=== PATIENT | female | born 1945 | race Caucasian/White ===

== ENCOUNTER 2019-04-03 11:34 | Inpatient (IN) ==
[2019-04-03 12:28] LABS: Basophils % 0.2 %; Eosinophils # 0.2 K/mcL (0.0-0.6); Eosinophils % 3.4 %; Hematocrit 34.4 % (35.3-44.9); Immature Granulocytes % 0.2 % (0-4); Lymphocytes # 1.7 K/mcL (0.6-4.6); Lymphocytes % 36.7 %; Mean Corpuscular Hemoglobin 28.9 pg (28.0-33.3); Mean Corpuscular Volume 90.5 fL (83.0-100.0); Mean Platelet Volume 10.8 fL (9.4-12.4); Monocytes # 0.5 K/mcL (0.0-1.3); Monocytes % 9.9 %; Neutrophils # 2.3 K/mcL (1.6-8.9); Platelet Count 136 K/mcL (140-400); Red Cell Distribution Width 15.6 % (11.5-14.5); Segmented Neutrophils % 49.6 %; White Blood Count 4.7 K/mcL (4.3-11.1)
[2019-04-03 12:40] LABS: INR 1.1; Prothrombin Time 12.6 Seconds (9.4-12.1)
[2019-04-03 12:43] LABS: Activated Partial Thrombo Time 33.7 Seconds (26.0-36.0)
[2019-04-03 12:54] LABS: Alanine Aminotransferase 33 Units/L (7-52); Alkaline Phosphatase 112 Units/L (34-104); Aspartate Amino Transferase 67 Units/L (13-39); BUN/Creatinine Ratio 29 (6-26); Bilirubin,Direct 0.2 mg/dL (0.0-0.2); Bilirubin,Indirect 0.6 mg/dL (0.0-1.0); Bilirubin,Total 0.8 mg/dL (0.3-1.0); Blood Urea Nitrogen 35 mg/dL (8-23); Calcium 10.5 mg/dL (8.6-10.3); Carbon Dioxide 20 mEq/L (23-29); Chloride 106 mEq/L (98-107); Ethanol < 10 mg/dL (Less than 10); Glucose 93 mg/dL (70-105); Osmolality,Calculated 292 (280-300); Potassium 5.1 mEq/L (3.5-5.1); Sodium 137 mEq/L (136-145); eGFR For African Americans 53 (> 60); eGFR For Non-African Americans 44 (> 60)
[2019-04-03 13:18] LABS: Bacteria,Urine Few per hpf (None-Few); RBC,Urine 0-3 per hpf (0-3); Squamous Epithelial Cell,Urine Many per lpf (None-Few); WBC,Urine 15-30 per hpf (0-3)
[2019-04-03 13:20] LABS: Amphetamine Screen,Urine Negative ng/mL (Cutoff=1000); Barbiturate Screen,Urine Negative ng/mL (Cutoff=200); Benzodiazepines Screen,Urine Negative ng/mL (Cutoff=200); Cannabinoid Screen,Urine Negative ng/mL (Cutoff = 50); Cocaine Screen,Urine Negative ng/mL (Cutoff= 300); Opiate Screen,Urine Negative ng/mL (Cutoff=300); Phencyclidine Screen,Urine Negative ng/mL (Cutoff=25)
[2019-04-03 13:35] LABS: Bilirubin,Urine Negative (Negative); Blood,Urine Negative (Negative); Clarity,Urine Cloudy (Clear); Color,Urine Yellow (Yellow); Glucose,Urine (UA) Normal (Normal); Ketones,Urine Negative (Negative); Leukocyte Esterase,Urine Moderate (Negative); Nitrite,Urine Negative (Negative); Protein,Urine Trace mg/dL (Neg-Trace); Urobilinogen,Urine Normal (Normal)
[2019-04-03 13:42] LABS: Calcium Oxalate Crystals,Urine Present
[2019-04-03] MEDS ORDERED: Lactulose Oral Soln 20 GM/30 ML UDC PO ONE (13:43)
[2019-04-03 13:51] LABS: Troponin I < 0.03 ng/mL (< 0.04)
[2019-04-03] MEDS ORDERED: cefTRIAXone 1,000 MG in Water for inj. (sterile) 10 ML IVP ONE (14:30)
[2019-04-03] MEDS ORDERED: MOM Conc 10 ML UD.LIQ PO PRN (15:28)
[2019-04-03] MEDS ORDERED: *HR* Promethazine 25 MG/ML VIAL IVP PRN (15:28)
[2019-04-03] MEDS ORDERED: Mag Hydrox/Al Hydrox/Simeth 30 ML UDC PO PRN (15:28)
[2019-04-03] MEDS ORDERED: Naloxone 0.4 MG/ML INJ IVP PRN (15:28)
[2019-04-03] MEDS ORDERED: Ondansetron 4 MG/2 ML VIAL IVP PRN (15:28)
[2019-04-03] MEDS ORDERED: *HR* Dextrose 50 % in Water (Syg) 50 ML SYRINGE IVP PRN (15:30)
[2019-04-03] MEDS ORDERED: Dextrose Gel 15 GM/37.5 ML TUBE PO PRN ×2 (15:30)
[2019-04-03] MEDS ORDERED: D5% in Water 1,000 ML IVC PRN (15:30)
[2019-04-03] MEDS: cefTRIAXone 2,000 MG in Water for inj. (sterile) 20 ML IVP SCH (18:15)
[2019-04-03] MEDS: 0.9 % Sodium Chloride 1,000 ML IVC SCH (18:17)
[2019-04-03] MEDS: Insulin LISPRO 300 UNITS/3 ML VIAL SQ SCH ×2 (18:17→20:22)
[2019-04-03] MEDS: rOPINIRole 0.25 MG TABLET PO SCH (20:19)
[2019-04-03] MEDS: Lactulose Oral Soln 20 GM/30 ML UDC PO SCH (20:20)
[2019-04-04 05:43] LABS: Basophils % 0.5 %; Eosinophils # 0.1 K/mcL (0.0-0.6); Eosinophils % 2.1 %; Hematocrit 29.1 % (35.3-44.9); Lymphocytes # 1.7 K/mcL (0.6-4.6); Lymphocytes % 43.5 %; Mean Corpuscular HGB Conc 31.6 g/dL (31.6-35.5); Mean Corpuscular Hemoglobin 28.9 pg (28.0-33.3); Mean Corpuscular Volume 91.5 fL (83.0-100.0); Monocytes # 0.5 K/mcL (0.0-1.3); Monocytes % 12.1 %; Neutrophils # 1.6 K/mcL (1.6-8.9); Platelet Count 114 K/mcL (140-400); Red Blood Count 3.18 M/mcL (3.82-4.97); Red Cell Distribution Width 15.6 % (11.5-14.5); Segmented Neutrophils % 41.8 %; White Blood Count 3.8 K/mcL (4.3-11.1)
[2019-04-04 05:53] LABS: Calcium 9.4 mg/dL (8.6-10.3); Potassium 5.2 mEq/L (3.5-5.1)
[2019-04-04 06:01] LABS: Hemoglobin 9.2 g/dL (11.5-15.4)
[2019-04-04] MEDS: 0.9 % Sodium Chloride 1,000 ML IVC SCH (08:50)
[2019-04-04] MEDS: Insulin LISPRO 300 UNITS/3 ML VIAL SQ SCH ×4 (08:50→20:33)
[2019-04-04] MEDS: Lactulose Oral Soln 20 GM/30 ML UDC PO SCH ×3 (08:51→20:45)
[2019-04-04] MEDS: Furosemide 20 MG TABLET PO SCH (08:53)
[2019-04-04] MEDS: Aspirin Enteric Coated 81 MG Tablet PO SCH (08:53)
[2019-04-04] MEDS: Loratadine 10 MG TABLET PO SCH (08:53)
[2019-04-04] MEDS ORDERED: Spironolactone 25 MG TABLET PO SCH (09:00)
[2019-04-04] MEDS: cefTRIAXone 2,000 MG in Water for inj. (sterile) 20 ML IVP SCH (19:47)
[2019-04-04] MEDS: rOPINIRole 0.25 MG TABLET PO SCH (20:46)
[2019-04-05 06:03] LABS: Hematocrit 29.5 % (35.3-44.9); Hemoglobin 9.6 g/dL (11.5-15.4); Mean Corpuscular HGB Conc 32.5 g/dL (31.6-35.5); Mean Corpuscular Hemoglobin 28.7 pg (28.0-33.3); Mean Corpuscular Volume 88.1 fL (83.0-100.0); Mean Platelet Volume 10.8 fL (9.4-12.4); Platelet Count 117 K/mcL (140-400); Red Blood Count 3.35 M/mcL (3.82-4.97); Red Cell Distribution Width 15.6 % (11.5-14.5)
[2019-04-05 06:08] LABS: INR 1.3; Prothrombin Time 14.5 Seconds (9.4-12.1)
[2019-04-05 06:24] LABS: Albumin 3.5 g/dL (3.5-5.7); Albumin/Globulin Ratio 0.9 (1.1-2.2); Bilirubin,Direct 0.2 mg/dL (0.0-0.2); Bilirubin,Indirect 0.3 mg/dL (0.0-1.0); Bilirubin,Total 0.5 mg/dL (0.3-1.0); Calcium 9.2 mg/dL (8.6-10.3); Globulin 3.7 g/dL (2.4-3.5); Magnesium 1.8 mg/dL (1.6-2.6); Potassium 4.6 mEq/L (3.5-5.1); Total Protein 7.2 g/dL (6.4-8.9)
[2019-04-05] MEDS: Insulin LISPRO 300 UNITS/3 ML VIAL SQ SCH ×4 (08:56→20:56)
[2019-04-05] MEDS: Furosemide 20 MG TABLET PO SCH (08:58)
[2019-04-05] MEDS: Lactulose Oral Soln 20 GM/30 ML UDC PO SCH ×4 (08:58→21:35)
[2019-04-05] MEDS: Aspirin Enteric Coated 81 MG Tablet PO SCH (08:58)
[2019-04-05] MEDS: Loratadine 10 MG TABLET PO SCH (08:58)
[2019-04-05] MEDS: cefTRIAXone 2,000 MG in Water for inj. (sterile) 20 ML IVP SCH (15:35)
[2019-04-05] MEDS: rOPINIRole 0.25 MG TABLET PO SCH (21:36)
[2019-04-05] MEDS ORDERED: Morphine Sulfate 2 MG/ML SYRINGE IVP ONE (22:01)
[2019-04-06] MEDS: Insulin LISPRO 300 UNITS/3 ML VIAL SQ SCH ×4 (08:32→20:30)
[2019-04-06] MEDS: Furosemide 20 MG TABLET PO SCH (08:49)
[2019-04-06] MEDS: Aspirin Enteric Coated 81 MG Tablet PO SCH (08:49)
[2019-04-06] MEDS: Lactulose Oral Soln 20 GM/30 ML UDC PO SCH ×4 (08:49→20:29)
[2019-04-06] MEDS: Loratadine 10 MG TABLET PO SCH (08:50)
[2019-04-06] MEDS: cefTRIAXone 2,000 MG in Water for inj. (sterile) 20 ML IVP SCH (17:37)
[2019-04-06] MEDS: rOPINIRole 0.25 MG TABLET PO SCH (20:30)
[2019-04-07 05:40] LABS: Mean Platelet Volume 11.2 fL (9.4-12.4); Red Cell Distribution Width 15.4 % (11.5-14.5)
[2019-04-07 05:42] LABS: Hematocrit 27.8 % (35.3-44.9); Hemoglobin 9.1 g/dL (11.5-15.4); Immature Platelets 3.5 % (1.1-6.1); Mean Corpuscular HGB Conc 32.7 g/dL (31.6-35.5); Mean Corpuscular Hemoglobin 28.8 pg (28.0-33.3); Red Blood Count 3.16 M/mcL (3.82-4.97); White Blood Count 3.2 K/mcL (4.3-11.1)
[2019-04-07 05:50] LABS: INR 1.2; Prothrombin Time 13.9 Seconds (9.4-12.1)
[2019-04-07 06:01] LABS: Alanine Aminotransferase 33 Units/L (7-52); Albumin 3.3 g/dL (3.5-5.7); Alkaline Phosphatase 99 Units/L (34-104); Aspartate Amino Transferase 59 Units/L (13-39); BUN/Creatinine Ratio 17 (6-26); Bilirubin,Direct 0.1 mg/dL (0.0-0.2); Bilirubin,Indirect 0.3 mg/dL (0.0-1.0); Bilirubin,Total 0.4 mg/dL (0.3-1.0); Blood Urea Nitrogen 16 mg/dL (8-23); Calcium 8.5 mg/dL (8.6-10.3); Carbon Dioxide 22 mEq/L (23-29); Chloride 107 mEq/L (98-107); Globulin 3.4 g/dL (2.4-3.5); Glucose 202 mg/dL (70-105); Magnesium 1.9 mg/dL (1.6-2.6); Osmolality,Calculated 293 (280-300); Potassium 3.7 mEq/L (3.5-5.1); Sodium 138 mEq/L (136-145); Total Protein 6.7 g/dL (6.4-8.9); eGFR For African Americans > 60 (> 60); eGFR For Non-African Americans 57 (> 60)
[2019-04-07] MEDS: Insulin LISPRO 300 UNITS/3 ML VIAL SQ SCH (08:34)
[2019-04-07] MEDS: Aspirin Enteric Coated 81 MG Tablet PO SCH (09:38)
[2019-04-07] MEDS: Lactulose Oral Soln 20 GM/30 ML UDC PO SCH (09:38)
[2019-04-07] MEDS: Loratadine 10 MG TABLET PO SCH (09:38)
[2019-04-07] MEDS: Furosemide 20 MG TABLET PO SCH (09:39)
[2019-04-07 11:02] VITALS: BP 116/62
== END 2019-04-07 13:11 | disposition home health service (06) | DRG 442 ==
LOC: 3ANU 11:34 → EMEROOARM 11:34 → SUATTDRO 15:33 → 3ANU 16:44
PROVIDERS: ADMIT Internal Medicine; ATTEND Internal Medicine

== ENCOUNTER 2020-03-29 09:07 | Inpatient (IN) ==
[2020-03-29 09:36] LABS: Basophils % 0.6 %; Eosinophils # 0.1 K/mcL (0.0-0.6); Eosinophils % 1.5 %; Hematocrit 34.5 % (35.3-44.9); Immature Granulocytes % 0.2 % (0-4); Lymphocytes # 2.3 K/mcL (0.6-4.6); Lymphocytes % 35.1 %; Mean Corpuscular Hemoglobin 22.9 pg (28.0-33.3); Mean Corpuscular Volume 79.1 fL (83.0-100.0); Mean Platelet Volume 10.7 fL (9.4-12.4); Monocytes # 0.8 K/mcL (0.0-1.3); Monocytes % 11.3 %; Neutrophils # 3.4 K/mcL (1.6-8.9); Platelet Count 187 K/mcL (140-400); Red Blood Count 4.36 M/mcL (3.82-4.97); Red Cell Distribution Width 18.6 % (11.5-14.5); Segmented Neutrophils % 51.3 %; White Blood Count 6.7 K/mcL (4.3-11.1)
[2020-03-29 09:56] LABS: Alanine Aminotransferase 19 Units/L (7-52); Albumin 3.9 g/dL (3.5-5.7); Alkaline Phosphatase 109 Units/L (34-104); Aspartate Amino Transferase 34 Units/L (13-39); BUN/Creatinine Ratio 16 (6-26); Bilirubin,Direct 0.2 mg/dL (0.0-0.2); Bilirubin,Indirect 0.8 mg/dL (0.0-1.0); Blood Urea Nitrogen 15 mg/dL (8-23); Calcium 9.8 mg/dL (8.6-10.3); Carbon Dioxide 25 mEq/L (23-29); Chloride 104 mEq/L (98-107); Creatine Kinase 138 Units/L (30-223); Globulin 3.9 g/dL (2.4-3.5); Glucose 145 mg/dL (70-105); Lipase 65 Units/L (11-82); Magnesium 1.6 mg/dL (1.6-2.6); Osmolality,Calculated 289 (280-300); Phosphorous 3.1 mg/dL (2.7-4.5); Potassium 3.9 mEq/L (3.5-5.1); Sodium 138 mEq/L (136-145); Total Protein 7.8 g/dL (6.4-8.9); Troponin I < 0.03 ng/mL (< 0.04); eGFR For African Americans > 60 (> 60); eGFR For Non-African Americans 58 (> 60)
[2020-03-29 10:01] LABS: VBG Ionized Calcium 1.18 mmol/L (1.15-1.35)
[2020-03-29 10:08] LABS: Thyroid Stimulating Hormone 0.768 mcIU/mL (0.340-5.600)
[2020-03-29] MEDS ORDERED: 0.9 % Sodium Chloride 1,000 ML IVC ONE (10:27)
[2020-03-29] MEDS ORDERED: Lactulose Oral Soln 20 GM/30 ML UDC PO ONE (10:28)
[2020-03-29 11:50] LABS: Bacteria,Urine Many per hpf (None-Few); Bilirubin,Urine Negative (Negative); Blood,Urine Negative (Negative); Clarity,Urine Turbid (Clear); Color,Urine Light-Yellow (Yellow); Glucose,Urine (UA) Normal (Normal); Hyaline Casts,Urine Few per lpf (None Seen); Ketones,Urine Negative (Negative); Leukocyte Esterase,Urine Large (Negative); Mucus,Urine Few per lpf (None-Few); Nitrite,Urine Negative (Negative); Protein,Urine Negative (Neg-Trace); RBC,Urine 0-3 per hpf (0-3); Specific Gravity,Urine 1.014 (1.010-1.025); Squamous Epithelial Cell,Urine Moderate per hpf (None-Few); Urobilinogen,Urine Normal (Normal); WBC,Urine 30-50 per hpf (0-3)
[2020-03-29] MEDS ORDERED: cefTRIAXone 1,000 MG in Water for inj. (sterile) 10 ML IVP ONE (12:07)
[2020-03-29] MEDS ORDERED: Naloxone 0.4 MG/ML INJ IVP PRN (13:38)
[2020-03-29] MEDS ORDERED: Dextrose Gel 15 GM/37.5 ML TUBE PO PRN ×2 (13:38)
[2020-03-29] MEDS ORDERED: *HR* Dextrose 50 % in Water (Vial) 50 ML VIAL IVP PRN (13:38)
[2020-03-29] MEDS ORDERED: D5% in Water 1,000 ML IVC PRN (13:38)
[2020-03-29] MEDS: Gabapentin 300 MG CAPSULE PO SCH ×2 (16:24→20:43)
[2020-03-29] MEDS: Lactulose Oral Soln 20 GM/30 ML UDC PO SCH ×2 (16:26→20:43)
[2020-03-29] MEDS: Insulin LISPRO 300 UNITS/3 ML VIAL SUBQ SCH (17:34)
[2020-03-29] MEDS: rOPINIRole 0.25 MG TABLET PO SCH (20:44)
[2020-03-30] MEDS ORDERED: Lactulose Oral Soln 20 GM/30 ML UDC PO ONE (00:01)
[2020-03-30] MEDS: Insulin LISPRO 300 UNITS/3 ML VIAL SUBQ SCH ×5 (00:12→19:59)
[2020-03-30 06:12] LABS: Red Cell Distribution Width 18.6 % (11.5-14.5)
[2020-03-30 06:13] LABS: Hematocrit 28.6 % (35.3-44.9); Hemoglobin 8.4 g/dL (11.5-15.4); Mean Corpuscular HGB Conc 29.4 g/dL (31.6-35.5); Mean Corpuscular Hemoglobin 22.9 pg (28.0-33.3); Mean Corpuscular Volume 77.9 fL (83.0-100.0); Mean Platelet Volume 10.5 fL (9.4-12.4); Platelet Count 136 K/mcL (140-400); Red Blood Count 3.67 M/mcL (3.82-4.97); White Blood Count 4.2 K/mcL (4.3-11.1)
[2020-03-30 06:34] LABS: Alanine Aminotransferase 16 Units/L (7-52); Albumin 3.3 g/dL (3.5-5.7); Alkaline Phosphatase 97 Units/L (34-104); Aspartate Amino Transferase 29 Units/L (13-39); BUN/Creatinine Ratio 17 (6-26); Bilirubin,Direct 0.3 mg/dL (0.0-0.2); Bilirubin,Indirect 0.6 mg/dL (0.0-1.0); Bilirubin,Total 0.9 mg/dL (0.3-1.0); Blood Urea Nitrogen 12 mg/dL (8-23); Carbon Dioxide 24 mEq/L (23-29); Chloride 107 mEq/L (98-107); Cholesterol 170 mg/dL (< 200); Globulin 3.2 g/dL (2.4-3.5); Glucose 132 mg/dL (70-105); HDL Cholesterol 42 mg/dL (40-59); LDL Cholesterol,Calculated 106 mg/dL (< 100); Osmolality,Calculated 292 (280-300); Potassium 3.8 mEq/L (3.5-5.1); Sodium 140 mEq/L (136-145); Total Protein 6.5 g/dL (6.4-8.9); Triglycerides 108 mg/dL (< 150); eGFR For African Americans > 60 (> 60); eGFR For Non-African Americans > 60 (> 60)
[2020-03-30 06:36] LABS: % Iron Saturation 7 % (15-50); Iron 32 mcg/dL (50-170); Transferrin 313 mg/dL (203-362)
[2020-03-30 06:45] LABS: Ferritin 12 ng/mL (10-120)
[2020-03-30] MEDS: hydroCHLOROthiazide 25 MG TABLET PO SCH (07:54)
[2020-03-30] MEDS: Venlafaxine XR (24 HR) 37.5 MG CAP.ER.24H PO SCH (07:54)
[2020-03-30] MEDS: Aspirin Enteric Coated 81 MG Tablet PO SCH (07:54)
[2020-03-30 07:55] LABS: Folate > 22.3 ng/mL (3.0-16.0); Vitamin B12 434 pg/mL (250-1100)
[2020-03-30] MEDS: Gabapentin 300 MG CAPSULE PO SCH ×3 (07:55→19:57)
[2020-03-30] MEDS: Furosemide 20 MG TABLET PO SCH (07:55)
[2020-03-30] MEDS: Loratadine 10 MG TABLET PO SCH (07:55)
[2020-03-30] MEDS: Spironolactone 25 MG TABLET PO SCH (07:56)
[2020-03-30] MEDS: Lactulose Oral Soln 20 GM/30 ML UDC PO SCH ×3 (07:56→19:54)
[2020-03-30] MEDS: atenoloL 25 MG TABLET PO SCH (07:56)
[2020-03-30] MEDS ORDERED: Iron Sucrose Complex 400 MG in 0.9 % Sodium Chloride 250 ML IVPB ONE (08:50)
[2020-03-30] MEDS ORDERED: *HR* SitaGLIPtin 100 MG TABLET PO SCH (09:00)
[2020-03-30] MEDS ORDERED: *HR* Glimepiride 2 MG TABLET PO SCH (09:00)
[2020-03-30 09:27] LABS: Estimated Average Glucose 214 mg/dl; Hemoglobin A1C 9.1 %
[2020-03-30] MEDS ORDERED: Gadolinium Contrast Agent (WT Based) IV PRN (12:02)
[2020-03-30] MEDS ORDERED: cefTRIAXone 1,000 MG in 0.9 % Sodium Chloride Mini Bag 100 ML IVPB SCH (13:00)
[2020-03-30] MEDS: *HR* Heparin 5,000 UNIT/ML VIAL SQ SCH (16:20)
[2020-03-30] MEDS: rOPINIRole 0.25 MG TABLET PO SCH (19:57)
[2020-03-31] MEDS: Acetaminophen 325 MG TABLET PO PRN ×3 (03:16→21:44)
[2020-03-31 06:23] LABS: Basophils % 0.4 %; Hemoglobin 9.6 g/dL (11.5-15.4); Immature Granulocytes % 0.8 % (0-4)
[2020-03-31 06:25] LABS: Eosinophils # 0.1 K/mcL (0.0-0.6); Hematocrit 33.5 % (35.3-44.9); Lymphocytes # 1.5 K/mcL (0.6-4.6); Lymphocytes % 30.1 %; Mean Corpuscular HGB Conc 28.7 g/dL (31.6-35.5); Mean Corpuscular Hemoglobin 22.9 pg (28.0-33.3); Mean Corpuscular Volume 79.8 fL (83.0-100.0); Mean Platelet Volume 10.5 fL (9.4-12.4); Monocytes # 0.6 K/mcL (0.0-1.3); Neutrophils # 2.7 K/mcL (1.6-8.9); Platelet Count 153 K/mcL (140-400); Red Cell Distribution Width 19.1 % (11.5-14.5); Segmented Neutrophils % 54.7 %
[2020-03-31] MEDS: *HR* Heparin 5,000 UNIT/ML VIAL SQ SCH ×2 (06:31→16:19)
[2020-03-31] MEDS: Insulin LISPRO 300 UNITS/3 ML VIAL SUBQ SCH ×5 (06:31→21:35)
[2020-03-31 06:44] LABS: Anisocytosis 1+ (Not Present); Hypochromasia Present (Not Present); Microcytosis Present (Not Present); Platelet Estimate Normal (Normal)
[2020-03-31 06:51] LABS: Alanine Aminotransferase 16 Units/L (7-52); Albumin 3.5 g/dL (3.5-5.7); Albumin/Globulin Ratio 0.9 (1.1-2.2); Alkaline Phosphatase 105 Units/L (34-104); Aspartate Amino Transferase 30 Units/L (13-39); BUN/Creatinine Ratio 13 (6-26); Bilirubin,Total 0.7 mg/dL (0.3-1.0); Blood Urea Nitrogen 9 mg/dL (8-23); Calcium 9.3 mg/dL (8.6-10.3); Carbon Dioxide 25 mEq/L (23-29); Chloride 108 mEq/L (98-107); Globulin 3.8 g/dL (2.4-3.5); Glucose 158 mg/dL (70-105); Magnesium 1.8 mg/dL (1.6-2.6); Osmolality,Calculated 294 (280-300); Phosphorous 3.2 mg/dL (2.7-4.5); Potassium 3.8 mEq/L (3.5-5.1); Sodium 141 mEq/L (136-145); Total Protein 7.3 g/dL (6.4-8.9); eGFR For African Americans > 60 (> 60); eGFR For Non-African Americans > 60 (> 60)
[2020-03-31] MEDS: Lactulose Oral Soln 20 GM/30 ML UDC PO SCH (09:17)
[2020-03-31] MEDS: Venlafaxine XR (24 HR) 37.5 MG CAP.ER.24H PO SCH (09:19)
[2020-03-31] MEDS: Aspirin Enteric Coated 81 MG Tablet PO SCH (09:19)
[2020-03-31] MEDS: Spironolactone 25 MG TABLET PO SCH (09:19)
[2020-03-31] MEDS: Gabapentin 300 MG CAPSULE PO SCH ×3 (09:19→21:35)
[2020-03-31] MEDS: hydroCHLOROthiazide 25 MG TABLET PO SCH (09:20)
[2020-03-31] MEDS: Furosemide 20 MG TABLET PO SCH (09:20)
[2020-03-31] MEDS: atenoloL 25 MG TABLET PO SCH (09:20)
[2020-03-31] MEDS: Loratadine 10 MG TABLET PO SCH (09:20)
[2020-03-31] MEDS ORDERED: Lactulose 200 GM, Sodium Chloride IRRigation 700 ML RC ONE (12:21)
[2020-03-31] MEDS: rOPINIRole 0.25 MG TABLET PO SCH (21:35)
[2020-04-01] MEDS: Insulin LISPRO 300 UNITS/3 ML VIAL SUBQ SCH ×2 (00:46→05:30)
[2020-04-01] MEDS: *HR* Heparin 5,000 UNIT/ML VIAL SQ SCH (05:31)
[2020-04-01] MEDS ORDERED: Lactulose Oral Soln 20 GM/30 ML UDC PO SCH ×2 (06:00→13:35)
[2020-04-01] MEDS: Aspirin Enteric Coated 81 MG Tablet PO SCH (10:27)
[2020-04-01] MEDS: hydroCHLOROthiazide 25 MG TABLET PO SCH (10:27)
[2020-04-01] MEDS: Furosemide 20 MG TABLET PO SCH (10:28)
[2020-04-01] MEDS: atenoloL 25 MG TABLET PO SCH (10:28)
[2020-04-01] MEDS: Spironolactone 25 MG TABLET PO SCH (10:28)
[2020-04-01] MEDS: Venlafaxine XR (24 HR) 37.5 MG CAP.ER.24H PO SCH (10:28)
[2020-04-01] MEDS: Gabapentin 300 MG CAPSULE PO SCH (10:28)
[2020-04-01] MEDS: Loratadine 10 MG TABLET PO SCH (10:28)
[2020-04-01 16:05] VITALS: BP 108/52
== END 2020-04-01 17:53 | disposition home health service (06) | DRG 442 ==
LOC: 3BNU 09:07 → EMEROOARM 09:07 → SUATTDRO 13:27 → 3BNU 15:09
PROVIDERS: ADMIT Internal Medicine; ATTEND Internal Medicine

== ENCOUNTER 2020-04-14 09:28 | Observation (INO) ==
[2020-04-14] MEDS ORDERED: 0.9 % Sodium Chloride 500 ML IVC ONE (09:40)
[2020-04-14 10:04] LABS: Basophils % 0.7 %; Eosinophils # 0.1 K/mcL (0.0-0.6); Eosinophils % 2.2 %; Hematocrit 35.1 % (35.3-44.9); Hemoglobin 10.2 g/dL (11.5-15.4); Immature Granulocytes % 0.3 % (0-4); Lymphocytes # 1.8 K/mcL (0.6-4.6); Mean Corpuscular HGB Conc 29.1 g/dL (31.6-35.5); Mean Corpuscular Hemoglobin 23.9 pg (28.0-33.3); Mean Corpuscular Volume 82.4 fL (83.0-100.0); Mean Platelet Volume 10.9 fL (9.4-12.4); Monocytes # 0.8 K/mcL (0.0-1.3); Monocytes % 14.2 %; Platelet Count 163 K/mcL (140-400); Red Blood Count 4.26 M/mcL (3.82-4.97); Red Cell Distribution Width 23.4 % (11.5-14.5); Segmented Neutrophils % 51.6 %; White Blood Count 5.8 K/mcL (4.3-11.1)
[2020-04-14 10:05] LABS: Bilirubin,Urine Negative (Negative); Blood,Urine Negative (Negative); Clarity,Urine Clear (Clear); Color,Urine Light-Yellow (Yellow); Glucose,Urine (UA) Normal (Normal); Ketones,Urine Negative (Negative); Leukocyte Esterase,Urine Negative (Negative); Nitrite,Urine Negative (Negative); Protein,Urine Negative (Neg-Trace); Specific Gravity,Urine 1.013 (1.010-1.025); Urobilinogen,Urine Normal (Normal)
[2020-04-14 10:09] LABS: INR 1.4; Prothrombin Time 15.7 Seconds (9.4-12.1)
[2020-04-14 10:12] LABS: Activated Partial Thrombo Time 34.1 Seconds (26.0-36.0)
[2020-04-14 10:13] LABS: Anisocytosis 2+ (Not Present); Platelet Estimate Normal (Normal)
[2020-04-14 10:28] LABS: Alanine Aminotransferase 21 Units/L (7-52); Albumin 3.5 g/dL (3.5-5.7); Albumin/Globulin Ratio 0.9 (1.1-2.2); Alkaline Phosphatase 112 Units/L (34-104); Aspartate Amino Transferase 45 Units/L (13-39); BUN/Creatinine Ratio 9 (6-26); Bilirubin,Direct 0.3 mg/dL (0.0-0.2); Bilirubin,Indirect 0.6 mg/dL (0.0-1.0); Bilirubin,Total 0.9 mg/dL (0.3-1.0); Blood Urea Nitrogen 11 mg/dL (8-23); Calcium 9.6 mg/dL (8.6-10.3); Carbon Dioxide 23 mEq/L (23-29); Chloride 107 mEq/L (98-107); Globulin 3.9 g/dL (2.4-3.5); Glucose 123 mg/dL (70-105); Lipase 47 Units/L (11-82); Osmolality,Calculated 289 (280-300); Sodium 139 mEq/L (136-145); Total Protein 7.4 g/dL (6.4-8.9); eGFR For African Americans 54 (> 60); eGFR For Non-African Americans 45 (> 60)
[2020-04-14] MEDS ORDERED: Lactulose Oral Soln 20 GM/30 ML UDC PO ONE (10:32)
[2020-04-14 10:36] LABS: Troponin I < 0.03 ng/mL (< 0.04)
[2020-04-14] MEDS ORDERED: Ondansetron 4 MG/2 ML VIAL IVP PRN (11:23)
[2020-04-14] MEDS ORDERED: Naloxone 0.4 MG/ML INJ IVP PRN (11:23)
[2020-04-14] MEDS ORDERED: Acetaminophen 325 MG TABLET PO PRN (11:23)
[2020-04-14] MEDS ORDERED: *HR* OxyCODONE Immed Rel 5 MG TABLET PO PRN ×2 (11:25→12:45)
[2020-04-14] MEDS: Gabapentin 300 MG CAPSULE PO SCH ×2 (13:22→20:49)
[2020-04-14] MEDS: Lactulose Oral Soln 20 GM/30 ML UDC PO SCH ×3 (13:22→20:49)
[2020-04-14] MEDS: rOPINIRole 0.25 MG TABLET PO SCH (20:49)
[2020-04-15] MEDS: *HR* Enoxaparin 40 MG/0.4 ML SYRINGE SQ SCH (05:14)
[2020-04-15 06:57] LABS: Hematocrit 33.3 % (35.3-44.9); Hemoglobin 9.6 g/dL (11.5-15.4); Mean Corpuscular HGB Conc 28.8 g/dL (31.6-35.5); Mean Corpuscular Hemoglobin 23.4 pg (28.0-33.3); Mean Platelet Volume 10.6 fL (9.4-12.4); Platelet Count 131 K/mcL (140-400); Red Blood Count 4.11 M/mcL (3.82-4.97); White Blood Count 5.3 K/mcL (4.3-11.1)
[2020-04-15 07:07] LABS: INR 1.4; Prothrombin Time 16.2 Seconds (9.4-12.1)
[2020-04-15 07:16] LABS: BUN/Creatinine Ratio 14 (6-26); Blood Urea Nitrogen 12 mg/dL (8-23); Calcium 8.8 mg/dL (8.6-10.3); Carbon Dioxide 25 mEq/L (23-29); Chloride 107 mEq/L (98-107); Glucose 92 mg/dL (70-105); Magnesium 1.8 mg/dL (1.6-2.6); Osmolality,Calculated 285 (280-300); Sodium 138 mEq/L (136-145); eGFR For African Americans > 60 (> 60); eGFR For Non-African Americans > 60 (> 60)
[2020-04-15] MEDS: Lactulose Oral Soln 20 GM/30 ML UDC PO SCH ×4 (07:56→20:37)
[2020-04-15] MEDS: Venlafaxine XR (24 HR) 75 MG CAP.ER.24H PO SCH (07:56)
[2020-04-15] MEDS: atenoloL 25 MG TABLET PO SCH (07:56)
[2020-04-15] MEDS: Gabapentin 300 MG CAPSULE PO SCH ×3 (07:56→20:38)
[2020-04-15] MEDS: Aspirin Enteric Coated 81 MG Tablet PO SCH (07:56)
[2020-04-15] MEDS: Furosemide 20 MG TABLET PO SCH (07:56)
[2020-04-15] MEDS: Spironolactone 25 MG TABLET PO SCH (11:48)
[2020-04-15] MEDS ORDERED: *HR* Dextrose 50 % in Water (Vial) 50 ML VIAL IVP PRN (12:45)
[2020-04-15] MEDS ORDERED: Dextrose Gel 15 GM/37.5 ML TUBE PO PRN ×2 (12:45)
[2020-04-15] MEDS ORDERED: D5% in Water 1,000 ML IVC PRN (12:45)
[2020-04-15] MEDS: Insulin LISPRO 300 UNITS/3 ML VIAL SUBQ SCH ×2 (14:29→17:50)
[2020-04-15] MEDS: rOPINIRole 0.25 MG TABLET PO SCH (20:37)
[2020-04-16 01:48] LABS: Basophils % 0.5 %; Eosinophils # 0.1 K/mcL (0.0-0.6); Eosinophils % 2.5 %; Hematocrit 32.9 % (35.3-44.9); Hemoglobin 9.6 g/dL (11.5-15.4); Immature Granulocytes % 0.5 % (0-4); Lymphocytes # 1.9 K/mcL (0.6-4.6); Lymphocytes % 34.3 %; Mean Corpuscular HGB Conc 29.2 g/dL (31.6-35.5); Mean Corpuscular Hemoglobin 23.7 pg (28.0-33.3); Mean Corpuscular Volume 81.2 fL (83.0-100.0); Monocytes # 0.7 K/mcL (0.0-1.3); Monocytes % 12.2 %; Neutrophils # 2.8 K/mcL (1.6-8.9); Platelet Count 139 K/mcL (140-400); Red Blood Count 4.05 M/mcL (3.82-4.97); White Blood Count 5.7 K/mcL (4.3-11.1)
[2020-04-16] MEDS: *HR* Enoxaparin 40 MG/0.4 ML SYRINGE SQ SCH (05:42)
[2020-04-16] MEDS: Aspirin Enteric Coated 81 MG Tablet PO SCH (08:00)
[2020-04-16] MEDS: Furosemide 20 MG TABLET PO SCH (08:00)
[2020-04-16] MEDS: Spironolactone 25 MG TABLET PO SCH (08:01)
[2020-04-16] MEDS: atenoloL 25 MG TABLET PO SCH (08:01)
[2020-04-16] MEDS: Venlafaxine XR (24 HR) 75 MG CAP.ER.24H PO SCH (08:01)
[2020-04-16] MEDS: Insulin LISPRO 300 UNITS/3 ML VIAL SUBQ SCH ×3 (08:01→16:11)
[2020-04-16] MEDS: Gabapentin 300 MG CAPSULE PO SCH ×3 (08:01→21:21)
[2020-04-16] MEDS: Lactulose Oral Soln 20 GM/30 ML UDC PO SCH ×4 (08:01→21:21)
[2020-04-16] MEDS ORDERED: Venlafaxine XR (24 HR) 75 MG CAP.ER.24H PO SCH (09:00)
[2020-04-16] MEDS: rOPINIRole 0.25 MG TABLET PO SCH (21:20)
[2020-04-17 04:57] LABS: Basophils % 0.4 %; Eosinophils # 0.1 K/mcL (0.0-0.6); Eosinophils % 1.7 %; Hematocrit 34.7 % (35.3-44.9); Hemoglobin 10.3 g/dL (11.5-15.4); Immature Granulocytes % 0.2 % (0-4); Lymphocytes # 1.9 K/mcL (0.6-4.6); Lymphocytes % 37.2 %; Mean Corpuscular HGB Conc 29.7 g/dL (31.6-35.5); Mean Corpuscular Hemoglobin 24.2 pg (28.0-33.3); Mean Corpuscular Volume 81.5 fL (83.0-100.0); Mean Platelet Volume 10.6 fL (9.4-12.4); Monocytes # 0.6 K/mcL (0.0-1.3); Monocytes % 11.8 %; Neutrophils # 2.5 K/mcL (1.6-8.9); Platelet Count 140 K/mcL (140-400); Red Blood Count 4.26 M/mcL (3.82-4.97); Red Cell Distribution Width 23.1 % (11.5-14.5); Segmented Neutrophils % 48.7 %; White Blood Count 5.2 K/mcL (4.3-11.1)
[2020-04-17 05:13] LABS: BUN/Creatinine Ratio 14 (6-26); Blood Urea Nitrogen 11 mg/dL (8-23); Calcium 9.6 mg/dL (8.6-10.3); Carbon Dioxide 24 mEq/L (23-29); Chloride 104 mEq/L (98-107); Glucose 157 mg/dL (70-105); Magnesium 1.7 mg/dL (1.6-2.6); Osmolality,Calculated 283 (280-300); Phosphorous 2.9 mg/dL (2.7-4.5); Potassium 3.8 mEq/L (3.5-5.1); Sodium 135 mEq/L (136-145); eGFR For African Americans > 60 (> 60); eGFR For Non-African Americans > 60 (> 60)
[2020-04-17 05:24] LABS: Anisocytosis 3+ (Not Present); Hypochromasia Present (Not Present); Macrocytosis Present (Not Present); Microcytosis Present (Not Present); Platelet Estimate Normal (Normal)
[2020-04-17] MEDS: *HR* Enoxaparin 40 MG/0.4 ML SYRINGE SQ SCH (05:44)
[2020-04-17] MEDS: Lactulose Oral Soln 20 GM/30 ML UDC PO SCH ×4 (08:19→20:08)
[2020-04-17] MEDS: Venlafaxine XR (24 HR) 75 MG CAP.ER.24H PO SCH (08:20)
[2020-04-17] MEDS: Furosemide 20 MG TABLET PO SCH (08:21)
[2020-04-17] MEDS: Spironolactone 25 MG TABLET PO SCH (08:21)
[2020-04-17] MEDS: Aspirin Enteric Coated 81 MG Tablet PO SCH (08:21)
[2020-04-17] MEDS: Gabapentin 300 MG CAPSULE PO SCH ×3 (08:22→20:08)
[2020-04-17] MEDS: atenoloL 25 MG TABLET PO SCH (08:22)
[2020-04-17] MEDS: Insulin LISPRO 300 UNITS/3 ML VIAL SUBQ SCH ×3 (08:23→17:22)
[2020-04-17] MEDS: rOPINIRole 0.25 MG TABLET PO SCH (20:08)
[2020-04-18 01:47] LABS: Basophils % 0.5 %
[2020-04-18 01:48] LABS: Eosinophils # 0.1 K/mcL (0.0-0.6); Eosinophils % 2.1 %; Hemoglobin 10.2 g/dL (11.5-15.4); Immature Granulocytes % 0.3 % (0-4); Lymphocytes % 35.2 %; Mean Corpuscular HGB Conc 29.1 g/dL (31.6-35.5); Mean Corpuscular Hemoglobin 24.2 pg (28.0-33.3); Mean Corpuscular Volume 82.9 fL (83.0-100.0); Mean Platelet Volume 10.8 fL (9.4-12.4); Monocytes # 0.7 K/mcL (0.0-1.3); Monocytes % 12.4 %; Neutrophils # 2.9 K/mcL (1.6-8.9); Platelet Count 136 K/mcL (140-400); Red Blood Count 4.22 M/mcL (3.82-4.97); Red Cell Distribution Width 22.8 % (11.5-14.5); Segmented Neutrophils % 49.5 %; White Blood Count 5.8 K/mcL (4.3-11.1)
[2020-04-18 02:05] LABS: BUN/Creatinine Ratio 10 (6-26); Blood Urea Nitrogen 9 mg/dL (8-23); Calcium 9.2 mg/dL (8.6-10.3); Carbon Dioxide 23 mEq/L (23-29); Chloride 101 mEq/L (98-107); Glucose 258 mg/dL (70-105); Osmolality,Calculated 282 (280-300); Potassium 3.6 mEq/L (3.5-5.1); Sodium 132 mEq/L (136-145); eGFR For African Americans > 60 (> 60); eGFR For Non-African Americans 59 (> 60)
[2020-04-18 03:17] LABS: Hypochromasia Present (Not Present); Platelet Estimate Normal (Normal)
[2020-04-18] MEDS: *HR* Enoxaparin 40 MG/0.4 ML SYRINGE SQ SCH (05:07)
[2020-04-18] MEDS: Lactulose Oral Soln 20 GM/30 ML UDC PO SCH ×4 (08:25→20:23)
[2020-04-18] MEDS: Aspirin Enteric Coated 81 MG Tablet PO SCH (08:26)
[2020-04-18] MEDS: Venlafaxine XR (24 HR) 75 MG CAP.ER.24H PO SCH (08:28)
[2020-04-18] MEDS: atenoloL 25 MG TABLET PO SCH (08:29)
[2020-04-18] MEDS: Gabapentin 300 MG CAPSULE PO SCH ×3 (08:29→20:24)
[2020-04-18] MEDS: Furosemide 20 MG TABLET PO SCH (08:29)
[2020-04-18] MEDS: Insulin LISPRO 300 UNITS/3 ML VIAL SUBQ SCH ×3 (08:30→16:49)
[2020-04-18] MEDS: Spironolactone 25 MG TABLET PO SCH (08:30)
[2020-04-18] MEDS: rOPINIRole 0.25 MG TABLET PO SCH (20:24)
[2020-04-19] MEDS: *HR* Enoxaparin 40 MG/0.4 ML SYRINGE SQ SCH (05:18)
[2020-04-19 06:10] LABS: BUN/Creatinine Ratio 14 (6-26); Blood Urea Nitrogen 11 mg/dL (8-23); Calcium 9.3 mg/dL (8.6-10.3); Carbon Dioxide 30 mEq/L (23-29); Chloride 101 mEq/L (98-107); Glucose 186 mg/dL (70-105); Osmolality,Calculated 282 (280-300); Potassium 4.3 mEq/L (3.5-5.1); Sodium 134 mEq/L (136-145); eGFR For African Americans > 60 (> 60); eGFR For Non-African Americans > 60 (> 60)
[2020-04-19] MEDS: Aspirin Enteric Coated 81 MG Tablet PO SCH (08:43)
[2020-04-19] MEDS: Spironolactone 25 MG TABLET PO SCH (08:43)
[2020-04-19] MEDS: Gabapentin 300 MG CAPSULE PO SCH ×2 (08:43→16:34)
[2020-04-19] MEDS: atenoloL 25 MG TABLET PO SCH (08:44)
[2020-04-19] MEDS: Furosemide 20 MG TABLET PO SCH (08:44)
[2020-04-19] MEDS: Venlafaxine XR (24 HR) 75 MG CAP.ER.24H PO SCH (08:45)
[2020-04-19] MEDS: Insulin LISPRO 300 UNITS/3 ML VIAL SUBQ SCH ×3 (08:48→16:35)
[2020-04-19] MEDS: Lactulose Oral Soln 20 GM/30 ML UDC PO SCH ×3 (10:38→16:34)
[2020-04-19 15:05] VITALS: BP 98/53
[2020-04-19] MEDS ORDERED: Insulin DETEMIR 100 UNIT/ML X5UNITS SUBQ SCH (21:00)
== END 2020-04-19 18:23 | disposition other institution (70) ==
LOC: EMEROOARM 09:28 → 3BNU 09:28 → SUATTDRO 11:18 → 3BNU 12:26
PROVIDERS: ADMIT Internal Medicine; ATTEND Internal Medicine

== ENCOUNTER 2020-05-27 07:45 | Observation (INO) ==
[2020-05-27 08:47] LABS: Basophils % 0.6 %; Eosinophils # 0.1 K/mcL (0.0-0.6); Eosinophils % 2.4 %; Hematocrit 33.4 % (35.3-44.9); Hemoglobin 10.1 g/dL (11.5-15.4); Immature Granulocytes % 0.2 % (0-4); Lymphocytes # 1.8 K/mcL (0.6-4.6); Lymphocytes % 34.2 %; Mean Corpuscular HGB Conc 30.2 g/dL (31.6-35.5); Mean Corpuscular Hemoglobin 25.9 pg (28.0-33.3); Mean Corpuscular Volume 85.6 fL (83.0-100.0); Monocytes # 0.9 K/mcL (0.0-1.3); Monocytes % 16.9 %; Neutrophils # 2.5 K/mcL (1.6-8.9); Platelet Count 121 K/mcL (140-400); Red Cell Distribution Width 20.9 % (11.5-14.5); Segmented Neutrophils % 45.7 %; White Blood Count 5.4 K/mcL (4.3-11.1)
[2020-05-27 09:05] LABS: Alanine Aminotransferase 18 Units/L (7-52); Albumin 3.4 g/dL (3.5-5.7); Albumin/Globulin Ratio 0.9 (1.1-2.2); Alkaline Phosphatase 90 Units/L (34-104); Aspartate Amino Transferase 37 Units/L (13-39); BUN/Creatinine Ratio 14 (6-26); Bilirubin,Total 0.7 mg/dL (0.3-1.0); Blood Urea Nitrogen 12 mg/dL (8-23); Calcium 9.5 mg/dL (8.6-10.3); Carbon Dioxide 25 mEq/L (23-29); Chloride 105 mEq/L (98-107); Globulin 3.6 g/dL (2.4-3.5); Glucose 89 mg/dL (70-105); Osmolality,Calculated 289 (280-300); Potassium 3.6 mEq/L (3.5-5.1); Sodium 140 mEq/L (136-145); Troponin I < 0.03 ng/mL (< 0.04); eGFR For African Americans > 60 (> 60); eGFR For Non-African Americans > 60 (> 60)
[2020-05-27] MEDS ORDERED: Ibuprofen 400 MG TABLET PO PRN (12:58)
[2020-05-27] MEDS ORDERED: Naloxone 0.4 MG/ML INJ IVP PRN (12:58)
[2020-05-27] MEDS ORDERED: Perflutren Lipid Microsphere 1.3 ML in 0.9 % Sodium Chloride 8.7 ML IVP PRN (13:10)
[2020-05-27] MEDS ORDERED: Isovue-370 500 ML BOTTLE IVP ONE (13:10)
[2020-05-27] MEDS: Gabapentin 300 MG CAPSULE PO SCH ×2 (15:08→21:01)
[2020-05-27] MEDS: Lactulose Oral Soln 20 GM/30 ML UDC PO SCH ×3 (15:10→21:01)
[2020-05-27] MEDS ORDERED: *HR* Heparin 5,000 UNIT/ML VIAL SQ SCH (18:00)
[2020-05-27] MEDS: rOPINIRole 0.25 MG TABLET PO SCH (21:01)
[2020-05-27] MEDS: Insulin DETEMIR 100 UNIT/ML X5UNITS SUBQ SCH (21:12)
[2020-05-27 23:26] LABS: Bacteria,Urine Few per hpf (None-Few); Bilirubin,Urine Negative (Negative); Blood,Urine Negative (Negative); Budding Yeast,Urine Few per hpf (None Seen); Clarity,Urine Clear (Clear); Color,Urine Light-Yellow (Yellow); Glucose,Urine (UA) Normal (Normal); Ketones,Urine Negative (Negative); Leukocyte Esterase,Urine Small (Negative); Mucus,Urine Few per lpf (None-Few); Nitrite,Urine Negative (Negative); PH,Urine 5.5 pH Units (5.0-8.0); Protein,Urine Negative (Neg-Trace); RBC,Urine 15-30 per hpf (0-3); Specific Gravity,Urine 1.025 (1.010-1.025); Squamous Epithelial Cell,Urine Few per hpf (None-Few); Urobilinogen,Urine Normal (Normal)
[2020-05-28 05:18] LABS: Basophils % 0.5 %; Eosinophils # 0.1 K/mcL (0.0-0.6); Eosinophils % 3.1 %; Hematocrit 30.9 % (35.3-44.9); Hemoglobin 9.5 g/dL (11.5-15.4); Immature Granulocytes % 0.3 % (0-4); Lymphocytes # 1.3 K/mcL (0.6-4.6); Lymphocytes % 33.5 %; Mean Corpuscular HGB Conc 30.7 g/dL (31.6-35.5); Mean Corpuscular Hemoglobin 26.2 pg (28.0-33.3); Mean Corpuscular Volume 85.1 fL (83.0-100.0); Mean Platelet Volume 11.1 fL (9.4-12.4); Monocytes # 0.5 K/mcL (0.0-1.3); Monocytes % 14.1 %; Neutrophils # 1.9 K/mcL (1.6-8.9); Platelet Count 107 K/mcL (140-400); Red Blood Count 3.63 M/mcL (3.82-4.97); Red Cell Distribution Width 20.5 % (11.5-14.5); Segmented Neutrophils % 48.5 %; White Blood Count 3.8 K/mcL (4.3-11.1)
[2020-05-28 05:37] LABS: Alanine Aminotransferase 17 Units/L (7-52); Albumin/Globulin Ratio 0.9 (1.1-2.2); Alkaline Phosphatase 83 Units/L (34-104); Aspartate Amino Transferase 35 Units/L (13-39); BUN/Creatinine Ratio 11 (6-26); Bilirubin,Total 0.7 mg/dL (0.3-1.0); Blood Urea Nitrogen 8 mg/dL (8-23); Calcium 9.1 mg/dL (8.6-10.3); Carbon Dioxide 28 mEq/L (23-29); Chloride 105 mEq/L (98-107); Globulin 3.4 g/dL (2.4-3.5); Glucose 128 mg/dL (70-105); Osmolality,Calculated 288 (280-300); Potassium 3.7 mEq/L (3.5-5.1); Sodium 139 mEq/L (136-145); Total Protein 6.4 g/dL (6.4-8.9); eGFR For African Americans > 60 (> 60); eGFR For Non-African Americans > 60 (> 60)
[2020-05-28] MEDS: Lactulose Oral Soln 20 GM/30 ML UDC PO SCH ×4 (08:39→21:15)
[2020-05-28] MEDS: Venlafaxine XR (24 HR) 75 MG CAP.ER.24H PO SCH (08:40)
[2020-05-28] MEDS: Spironolactone 25 MG TABLET PO SCH (08:40)
[2020-05-28] MEDS: Aspirin Enteric Coated 81 MG Tablet PO SCH (08:40)
[2020-05-28] MEDS ORDERED: atenoloL 25 MG TABLET PO SCH (09:00)
[2020-05-28] MEDS ORDERED: Furosemide 20 MG TABLET PO SCH (09:00)
[2020-05-28] MEDS ORDERED: Dextrose Gel 15 GM/37.5 ML TUBE PO PRN ×2 (13:28)
[2020-05-28] MEDS ORDERED: D5% in Water 1,000 ML IVC PRN (13:28)
[2020-05-28] MEDS ORDERED: *HR* Dextrose 50 % in Water (Vial) 50 ML VIAL IVP PRN (13:28)
[2020-05-28] MEDS: Acetaminophen 325 MG TABLET PO PRN ×2 (14:22→22:13)
[2020-05-28] MEDS ORDERED: *HR* HYDROcodone/Acet 5/325 mg TABLET PO ONE (15:35)
[2020-05-28] MEDS: Insulin DETEMIR 100 UNIT/ML X5UNITS SUBQ SCH (21:15)
[2020-05-28] MEDS: rOPINIRole 0.25 MG TABLET PO SCH (21:15)
[2020-05-29] MEDS: Acetaminophen 325 MG TABLET PO PRN ×3 (02:16→20:31)
[2020-05-29] MEDS: *HR* Enoxaparin 40 MG/0.4 ML SYRINGE SQ SCH (05:35)
[2020-05-29] MEDS: Venlafaxine XR (24 HR) 75 MG CAP.ER.24H PO SCH (07:41)
[2020-05-29] MEDS: Spironolactone 25 MG TABLET PO SCH (07:41)
[2020-05-29] MEDS: Lactulose Oral Soln 20 GM/30 ML UDC PO SCH ×4 (07:41→20:22)
[2020-05-29] MEDS: Aspirin Enteric Coated 81 MG Tablet PO SCH (07:41)
[2020-05-29] MEDS: rOPINIRole 0.25 MG TABLET PO SCH (20:22)
[2020-05-29] MEDS: Insulin DETEMIR 100 UNIT/ML X5UNITS SUBQ SCH (20:25)
[2020-05-30] MEDS: *HR* Enoxaparin 40 MG/0.4 ML SYRINGE SQ SCH (05:56)
[2020-05-30] MEDS: Acetaminophen 325 MG TABLET PO PRN ×3 (08:02→19:23)
[2020-05-30] MEDS: Venlafaxine XR (24 HR) 75 MG CAP.ER.24H PO SCH (08:16)
[2020-05-30] MEDS: Aspirin Enteric Coated 81 MG Tablet PO SCH (08:16)
[2020-05-30] MEDS: Spironolactone 25 MG TABLET PO SCH (08:16)
[2020-05-30] MEDS: Lactulose Oral Soln 20 GM/30 ML UDC PO SCH ×4 (08:17→21:37)
[2020-05-30] MEDS: *HR* OxyCODONE Immed Rel 5 MG TABLET PO PRN ×2 (15:02→21:44)
[2020-05-30] MEDS: Insulin DETEMIR 100 UNIT/ML X5UNITS SUBQ SCH (21:37)
[2020-05-30] MEDS: rOPINIRole 0.25 MG TABLET PO SCH (21:37)
[2020-05-31] MEDS: Artificial Tears SOLN 15 ML BOTTLE BOTH EYES PRN ×2 (00:33→14:29)
[2020-05-31] MEDS: *HR* Enoxaparin 40 MG/0.4 ML SYRINGE SQ SCH (04:55)
[2020-05-31] MEDS: Lactulose Oral Soln 20 GM/30 ML UDC PO SCH ×4 (08:31→19:44)
[2020-05-31] MEDS: Spironolactone 25 MG TABLET PO SCH (08:31)
[2020-05-31] MEDS: Venlafaxine XR (24 HR) 75 MG CAP.ER.24H PO SCH (08:31)
[2020-05-31] MEDS: Aspirin Enteric Coated 81 MG Tablet PO SCH (08:31)
[2020-05-31] MEDS: Acetaminophen 325 MG TABLET PO PRN (08:38)
[2020-05-31] MEDS: *HR* OxyCODONE Immed Rel 5 MG TABLET PO PRN ×2 (09:44→19:44)
[2020-05-31] MEDS: Insulin DETEMIR 100 UNIT/ML X5UNITS SUBQ SCH (19:44)
[2020-05-31] MEDS: rOPINIRole 0.25 MG TABLET PO SCH (19:44)
[2020-06-01] MEDS: *HR* Enoxaparin 40 MG/0.4 ML SYRINGE SQ SCH (05:37)
[2020-06-01] MEDS: Spironolactone 25 MG TABLET PO SCH (08:39)
[2020-06-01] MEDS: Venlafaxine XR (24 HR) 75 MG CAP.ER.24H PO SCH (08:40)
[2020-06-01] MEDS: Aspirin Enteric Coated 81 MG Tablet PO SCH (08:41)
[2020-06-01] MEDS: Lactulose Oral Soln 20 GM/30 ML UDC PO SCH ×3 (08:44→16:32)
[2020-06-01] MEDS: *HR* OxyCODONE Immed Rel 5 MG TABLET PO PRN (10:57)
[2020-06-01] MEDS: Artificial Tears SOLN 15 ML BOTTLE BOTH EYES PRN (11:00)
[2020-06-01 15:15] LABS: Adenovirus Not Detected (Not Detect); Bordetella Pertussis Not Detected (Not Detect); Chlamydophila pneumoniae Not Detected (Not Detect); Coronavirus 229E Not Detected (Not Detect); Coronavirus HKU1 Not Detected (Not Detect); Coronavirus NL63 Not Detected (Not Detect); Coronavirus OC43 Not Detected (Not Detect); Human Metapneumovirus Not Detected (Not Detect); Human Rhinovirus/Enterovirus Not Detected (Not Detect); Influenza A Subtype 2009 H1 Not Detected (Not Detect); Influenza B Not Detected (Not Detect); Mycoplasma pneumoniae Not Detected (Not Detect); Parainfluenza Virus 1 Not Detected (Not Detect); Parainfluenza Virus 2 Not Detected (Not Detect); Parainfluenza Virus 3 Not Detected (Not Detect); Parainfluenza Virus 4 Not Detected (Not Detect); Respiratory Syncytial Virus Not Detected (Not Detect); SARS-CoV-2 Not Detected (Not Detect)
[2020-06-01 15:44] VITALS: BP 123/67
== END 2020-06-01 18:07 | disposition other institution (70) ==
LOC: 2ANU 07:45 → EMEROOARM 07:45 → SUATTDRO 15:06 → 2ANU 16:20
PROVIDERS: ADMIT Internal Medicine; ATTEND Internal Medicine

== ENCOUNTER 2020-07-04 08:04 | Inpatient (IN) ==
[2020-07-04] MEDS ORDERED: Isovue-370 500 ML BOTTLE IVP ONE (08:26)
[2020-07-04 08:42] LABS: Hematocrit 39.7 % (35.3-44.9); Mean Corpuscular HGB Conc 30.2 g/dL (31.6-35.5); Mean Corpuscular Hemoglobin 27.1 pg (28.0-33.3); Mean Corpuscular Volume 89.8 fL (83.0-100.0); Mean Platelet Volume 10.8 fL (9.4-12.4); Platelet Count 128 K/mcL (140-400); Red Blood Count 4.42 M/mcL (3.82-4.97); Red Cell Distribution Width 18.4 % (11.5-14.5); White Blood Count 5.3 K/mcL (4.3-11.1)
[2020-07-04 08:52] LABS: INR 1.4; Prothrombin Time 15.6 Seconds (9.4-12.1)
[2020-07-04 08:55] LABS: Activated Partial Thrombo Time 34.5 Seconds (26.0-36.0)
[2020-07-04 09:02] LABS: Albumin 3.7 g/dL (3.5-5.7); Bilirubin,Direct 0.4 mg/dL (0.0-0.2); Bilirubin,Indirect 0.8 mg/dL (0.0-1.0); Bilirubin,Total 1.2 mg/dL (0.3-1.0); Globulin 3.8 g/dL (2.4-3.5); Total Protein 7.5 g/dL (6.4-8.9)
[2020-07-04 09:04] LABS: BUN/Creatinine Ratio 19 (6-26); Blood Urea Nitrogen 19 mg/dL (8-23); Calcium 9.9 mg/dL (8.6-10.3); Carbon Dioxide 25 mEq/L (23-29); Chloride 106 mEq/L (98-107); Glucose 138 mg/dL (70-105); Osmolality,Calculated 292 (280-300); Potassium 3.9 mEq/L (3.5-5.1); Sodium 139 mEq/L (136-145); Troponin I < 0.03 ng/mL (< 0.04); eGFR For African Americans > 60 (> 60); eGFR For Non-African Americans 56 (> 60)
[2020-07-04 09:26] LABS: Amorphous Sediment,Urine Few per hpf (None-Few); Bacteria,Urine Few per hpf (None-Few); Bilirubin,Urine Negative (Negative); Blood,Urine Negative (Negative); Budding Yeast,Urine Few per hpf (None Seen); Clarity,Urine Clear (Clear); Color,Urine Yellow (Yellow); Glucose,Urine (UA) Normal (Normal); Hyaline Casts,Urine Few per lpf (None Seen); Ketones,Urine Negative (Negative); Leukocyte Esterase,Urine Large (Negative); Mucus,Urine Few per lpf (None-Few); Nitrite,Urine Negative (Negative); Protein,Urine Negative (Neg-Trace); RBC,Urine 0-3 per hpf (0-3); Specific Gravity,Urine 1.021 (1.010-1.025); Squamous Epithelial Cell,Urine Few per hpf (None-Few); Urobilinogen,Urine Normal (Normal); WBC,Urine 15-30 per hpf (0-3)
[2020-07-04 10:26] LABS: Amphetamine Screen,Urine Negative ng/mL (Cutoff=1000); Barbiturate Screen,Urine Negative ng/mL (Cutoff=200); Benzodiazepines Screen,Urine Negative ng/mL (Cutoff=200); Cannabinoid Screen,Urine Negative ng/mL (Cutoff = 50); Cocaine Screen,Urine Negative ng/mL (Cutoff= 300); Opiate Screen,Urine Negative ng/mL (Cutoff=300); Phencyclidine Screen,Urine Negative ng/mL (Cutoff=25)
[2020-07-04] MEDS ORDERED: Aspirin 81 MG TAB.CHEW PO STA (10:31)
[2020-07-04] MEDS ORDERED: Naloxone 0.4 MG/ML INJ IVP PRN (12:33)
[2020-07-04 12:51] LABS: Magnesium 1.6 mg/dL (1.6-2.6)
[2020-07-04 13:48] LABS: Thyroid Stimulating Hormone 1.1 mcIU/mL (0.340-5.600)
[2020-07-04 16:01] LABS: Hepatitis B Surface Antigen Nonreactive (Nonreactive)
[2020-07-04 16:30] LABS: Hepatitis A Antibody IgM Nonreactive (Nonreactive); Hepatitis B Core IgM Nonreactive (Nonreactive); Hepatitis C Virus Antibody Nonreactive (Nonreactive)
[2020-07-04] MEDS: *HR* Heparin 5,000 UNIT/ML VIAL SQ SCH (18:38)
[2020-07-04] MEDS: Lactulose Oral Soln 20 GM/30 ML UDC PO SCH ×2 (18:38→21:28)
[2020-07-04] MEDS ORDERED: 0.9 % Sodium Chloride 1,000 ML IVC SCH (20:15)
[2020-07-04] MEDS ORDERED: Lactulose Oral Soln 20 GM/30 ML UDC PO SCH (21:00)
[2020-07-05 01:01] LABS: Basophils % 0.6 %; Eosinophils # 0.2 K/mcL (0.0-0.6); Eosinophils % 2.9 %; Hematocrit 42.3 % (35.3-44.9); Hemoglobin 12.8 g/dL (11.5-15.4); Immature Granulocytes % 0.3 % (0-4); Lymphocytes # 2.1 K/mcL (0.6-4.6); Mean Corpuscular HGB Conc 30.3 g/dL (31.6-35.5); Mean Corpuscular Hemoglobin 27.5 pg (28.0-33.3); Mean Corpuscular Volume 90.8 fL (83.0-100.0); Mean Platelet Volume 11.2 fL (9.4-12.4); Monocytes # 0.8 K/mcL (0.0-1.3); Monocytes % 11.5 %; Neutrophils # 3.7 K/mcL (1.6-8.9); Platelet Count 152 K/mcL (140-400); Red Blood Count 4.66 M/mcL (3.82-4.97); Red Cell Distribution Width 18.6 % (11.5-14.5); Segmented Neutrophils % 53.7 %; White Blood Count 6.8 K/mcL (4.3-11.1)
[2020-07-05 01:03] LABS: Albumin 3.7 g/dL (3.5-5.7); Albumin/Globulin Ratio 0.9 (1.1-2.2); Bilirubin,Direct 0.3 mg/dL (0.0-0.2); Bilirubin,Indirect 0.9 mg/dL (0.0-1.0); Bilirubin,Total 1.2 mg/dL (0.3-1.0); Globulin 4.2 g/dL (2.4-3.5); Total Protein 7.9 g/dL (6.4-8.9)
[2020-07-05 01:04] LABS: Chol/HDL Ratio 4.3 (0-4.9)
[2020-07-05 01:05] LABS: BUN/Creatinine Ratio 20 (6-26); Blood Urea Nitrogen 21 mg/dL (8-23); Calcium 9.9 mg/dL (8.6-10.3); Carbon Dioxide 22 mEq/L (23-29); Chloride 107 mEq/L (98-107); Glucose 141 mg/dL (70-105); Osmolality,Calculated 293 (280-300); Potassium 3.8 mEq/L (3.5-5.1); Sodium 139 mEq/L (136-145); eGFR For African Americans > 60 (> 60); eGFR For Non-African Americans 53 (> 60)
[2020-07-05] MEDS: *HR* Heparin 5,000 UNIT/ML VIAL SQ SCH ×2 (06:24→17:48)
[2020-07-05] MEDS: Lactulose Oral Soln 20 GM/30 ML UDC PO SCH ×3 (09:11→22:55)
[2020-07-05] MEDS: Aspirin Enteric Coated 81 MG Tablet PO SCH (09:11)
[2020-07-05] MEDS: atenoloL 25 MG TABLET PO SCH (09:12)
[2020-07-05] MEDS: Furosemide 20 MG TABLET PO SCH (09:12)
[2020-07-05] MEDS ORDERED: D5% in Water 1,000 ML IVC PRN (18:52)
[2020-07-05] MEDS ORDERED: *HR* Dextrose 50 % in Water (Vial) 50 ML VIAL IVP PRN (18:52)
[2020-07-05] MEDS ORDERED: Dextrose Gel 15 GM/37.5 ML TUBE PO PRN ×2 (18:52)
[2020-07-05] MEDS: rOPINIRole 0.25 MG TABLET PO SCH (22:55)
[2020-07-05] MEDS: Gabapentin 300 MG CAPSULE PO SCH (22:55)
[2020-07-05] MEDS: Insulin LISPRO 300 UNITS/3 ML VIAL SUBQ SCH ×2 (22:55)
[2020-07-06 01:29] LABS: Basophils % 0.5 %; Eosinophils # 0.2 K/mcL (0.0-0.6); Eosinophils % 4.3 %; Hematocrit 37.4 % (35.3-44.9); Hemoglobin 11.5 g/dL (11.5-15.4); Immature Granulocytes % 0.4 % (0-4); Lymphocytes # 1.9 K/mcL (0.6-4.6); Lymphocytes % 33.6 %; Mean Corpuscular HGB Conc 30.7 g/dL (31.6-35.5); Mean Corpuscular Hemoglobin 27.7 pg (28.0-33.3); Mean Corpuscular Volume 90.1 fL (83.0-100.0); Monocytes # 0.7 K/mcL (0.0-1.3); Monocytes % 12.1 %; Neutrophils # 2.8 K/mcL (1.6-8.9); Platelet Count 132 K/mcL (140-400); Red Blood Count 4.15 M/mcL (3.82-4.97); Red Cell Distribution Width 18.1 % (11.5-14.5); Segmented Neutrophils % 49.1 %; White Blood Count 5.6 K/mcL (4.3-11.1)
[2020-07-06 01:47] LABS: Alanine Aminotransferase 26 Units/L (7-52); Albumin 3.4 g/dL (3.5-5.7); Albumin/Globulin Ratio 0.9 (1.1-2.2); Alkaline Phosphatase 122 Units/L (34-104); Aspartate Amino Transferase 57 Units/L (13-39); BUN/Creatinine Ratio 19 (6-26); Bilirubin,Direct 0.3 mg/dL (0.0-0.2); Bilirubin,Indirect 0.7 mg/dL (0.0-1.0); Blood Urea Nitrogen 17 mg/dL (8-23); Calcium 8.9 mg/dL (8.6-10.3); Carbon Dioxide 25 mEq/L (23-29); Chloride 106 mEq/L (98-107); Globulin 3.7 g/dL (2.4-3.5); Glucose 132 mg/dL (70-105); Magnesium 1.8 mg/dL (1.6-2.6); Osmolality,Calculated 289 (280-300); Potassium 3.7 mEq/L (3.5-5.1); Sodium 138 mEq/L (136-145); Total Protein 7.1 g/dL (6.4-8.9); eGFR For African Americans > 60 (> 60); eGFR For Non-African Americans > 60 (> 60)
[2020-07-06 02:15] LABS: Estimated Average Glucose 148 mg/dl; Hemoglobin A1C 6.8 %
[2020-07-06] MEDS: *HR* Heparin 5,000 UNIT/ML VIAL SQ SCH ×2 (05:35→16:58)
[2020-07-06] MEDS: Lactulose Oral Soln 20 GM/30 ML UDC PO SCH ×3 (08:01→21:23)
[2020-07-06] MEDS: Insulin LISPRO 300 UNITS/3 ML VIAL SUBQ SCH ×4 (08:01→21:06)
[2020-07-06] MEDS: Gabapentin 300 MG CAPSULE PO SCH ×3 (08:02→21:22)
[2020-07-06] MEDS: atenoloL 25 MG TABLET PO SCH (08:02)
[2020-07-06] MEDS: Aspirin Enteric Coated 81 MG Tablet PO SCH (08:02)
[2020-07-06] MEDS: Furosemide 20 MG TABLET PO SCH (08:02)
[2020-07-06] MEDS: Venlafaxine XR (24 HR) 75 MG CAP.ER.24H PO SCH (08:02)
[2020-07-06] MEDS: Spironolactone 25 MG TABLET PO SCH (08:06)
[2020-07-06] MEDS: *HR* OxyCODONE Immed Rel 5 MG TABLET PO PRN (14:26)
[2020-07-06] MEDS: rOPINIRole 0.25 MG TABLET PO SCH (21:23)
[2020-07-07 00:35] LABS: Hematocrit 37.8 % (35.3-44.9); Hemoglobin 11.6 g/dL (11.5-15.4); Mean Corpuscular HGB Conc 30.7 g/dL (31.6-35.5); Mean Corpuscular Volume 91.3 fL (83.0-100.0); Mean Platelet Volume 10.9 fL (9.4-12.4); Platelet Count 123 K/mcL (140-400); Red Blood Count 4.14 M/mcL (3.82-4.97); Segmented Neutrophils % 47.9 %; White Blood Count 5.3 K/mcL (4.3-11.1)
[2020-07-07 00:36] LABS: Basophils % 0.4 %; Eosinophils # 0.2 K/mcL (0.0-0.6); Eosinophils % 3.6 %; Immature Granulocytes % 0.2 % (0-4); Lymphocytes # 1.8 K/mcL (0.6-4.6); Lymphocytes % 34.2 %; Monocytes # 0.7 K/mcL (0.0-1.3); Monocytes % 13.7 %; Neutrophils # 2.5 K/mcL (1.6-8.9)
[2020-07-07 00:52] LABS: BUN/Creatinine Ratio 19 (6-26); Blood Urea Nitrogen 17 mg/dL (8-23); Calcium 8.7 mg/dL (8.6-10.3); Carbon Dioxide 25 mEq/L (23-29); Chloride 105 mEq/L (98-107); Glucose 186 mg/dL (70-105); Magnesium 1.7 mg/dL (1.6-2.6); Osmolality,Calculated 288 (280-300); Sodium 136 mEq/L (136-145); eGFR For African Americans > 60 (> 60); eGFR For Non-African Americans > 60 (> 60)
[2020-07-07] MEDS: *HR* Heparin 5,000 UNIT/ML VIAL SQ SCH ×2 (04:50→18:49)
[2020-07-07] MEDS: Furosemide 20 MG TABLET PO SCH (08:36)
[2020-07-07] MEDS: Spironolactone 25 MG TABLET PO SCH (08:36)
[2020-07-07] MEDS: Gabapentin 300 MG CAPSULE PO SCH ×3 (08:36→20:08)
[2020-07-07] MEDS: atenoloL 25 MG TABLET PO SCH (08:36)
[2020-07-07] MEDS: Aspirin Enteric Coated 81 MG Tablet PO SCH (08:36)
[2020-07-07] MEDS: Venlafaxine XR (24 HR) 75 MG CAP.ER.24H PO SCH (08:36)
[2020-07-07] MEDS: Insulin LISPRO 300 UNITS/3 ML VIAL SUBQ SCH ×4 (08:37→20:15)
[2020-07-07] MEDS: Lactulose Oral Soln 20 GM/30 ML UDC PO SCH ×3 (08:37→20:08)
[2020-07-07] MEDS: *HR* OxyCODONE Immed Rel 5 MG TABLET PO PRN (12:23)
[2020-07-07] MEDS: rOPINIRole 0.25 MG TABLET PO SCH (20:08)
[2020-07-08 02:30] LABS: Basophils % 0.7 %; Eosinophils # 0.2 K/mcL (0.0-0.6); Eosinophils % 3.7 %; Hematocrit 38.7 % (35.3-44.9); Hemoglobin 11.8 g/dL (11.5-15.4); Immature Granulocytes % 0.2 % (0-4); Lymphocytes # 1.4 K/mcL (0.6-4.6); Lymphocytes % 32.8 %; Mean Corpuscular HGB Conc 30.5 g/dL (31.6-35.5); Mean Corpuscular Hemoglobin 27.8 pg (28.0-33.3); Mean Corpuscular Volume 91.1 fL (83.0-100.0); Mean Platelet Volume 10.9 fL (9.4-12.4); Monocytes # 0.4 K/mcL (0.0-1.3); Neutrophils # 2.3 K/mcL (1.6-8.9); Platelet Count 113 K/mcL (140-400); Red Blood Count 4.25 M/mcL (3.82-4.97); Red Cell Distribution Width 18.2 % (11.5-14.5); Segmented Neutrophils % 52.6 %; White Blood Count 4.3 K/mcL (4.3-11.1)
[2020-07-08 02:53] LABS: BUN/Creatinine Ratio 16 (6-26); Blood Urea Nitrogen 13 mg/dL (8-23); Calcium 8.7 mg/dL (8.6-10.3); Carbon Dioxide 25 mEq/L (23-29); Chloride 101 mEq/L (98-107); Glucose 155 mg/dL (70-105); Osmolality,Calculated 281 (280-300); Sodium 134 mEq/L (136-145); eGFR For African Americans > 60 (> 60); eGFR For Non-African Americans > 60 (> 60)
[2020-07-08] MEDS: *HR* Heparin 5,000 UNIT/ML VIAL SQ SCH (06:20)
[2020-07-08] MEDS: Venlafaxine XR (24 HR) 75 MG CAP.ER.24H PO SCH (08:38)
[2020-07-08] MEDS: Furosemide 20 MG TABLET PO SCH (08:38)
[2020-07-08] MEDS: Lactulose Oral Soln 20 GM/30 ML UDC PO SCH ×3 (08:39→20:49)
[2020-07-08] MEDS: Aspirin Enteric Coated 81 MG Tablet PO SCH (08:39)
[2020-07-08] MEDS: atenoloL 25 MG TABLET PO SCH (08:39)
[2020-07-08] MEDS: Gabapentin 300 MG CAPSULE PO SCH ×3 (08:39→20:49)
[2020-07-08] MEDS: Spironolactone 25 MG TABLET PO SCH (08:39)
[2020-07-08] MEDS: Insulin LISPRO 300 UNITS/3 ML VIAL SUBQ SCH ×4 (08:40→20:49)
[2020-07-08] MEDS: rOPINIRole 0.25 MG TABLET PO SCH (20:49)
[2020-07-09 02:04] LABS: Basophils % 0.3 %
[2020-07-09 02:06] LABS: Hematocrit 35.1 % (35.3-44.9); Hemoglobin 10.7 g/dL (11.5-15.4); Immature Granulocytes % 0.6 % (0-4); Immature Platelets 3.5 % (1.1-6.1); Lymphocytes # 0.6 K/mcL (0.6-4.6); Lymphocytes % 18.1 %; Mean Corpuscular HGB Conc 30.5 g/dL (31.6-35.5); Mean Corpuscular Hemoglobin 27.7 pg (28.0-33.3); Mean Corpuscular Volume 90.9 fL (83.0-100.0); Mean Platelet Volume 11.2 fL (9.4-12.4); Monocytes # 0.4 K/mcL (0.0-1.3); Monocytes % 14.2 %; Red Blood Count 3.86 M/mcL (3.82-4.97); Segmented Neutrophils % 65.8 %; White Blood Count 3.1 K/mcL (4.3-11.1)
[2020-07-09 02:07] LABS: Platelet Count 88 K/mcL (140-400)
[2020-07-09 02:23] LABS: BUN/Creatinine Ratio 18 (6-26); Blood Urea Nitrogen 14 mg/dL (8-23); Calcium 8.6 mg/dL (8.6-10.3); Carbon Dioxide 21 mEq/L (23-29); Chloride 105 mEq/L (98-107); Glucose 150 mg/dL (70-105); Osmolality,Calculated 281 (280-300); Sodium 134 mEq/L (136-145); eGFR For African Americans > 60 (> 60); eGFR For Non-African Americans > 60 (> 60)
[2020-07-09 02:25] LABS: Albumin 3.3 g/dL (3.5-5.7); Albumin/Globulin Ratio 0.9 (1.1-2.2); Bilirubin,Direct 0.4 mg/dL (0.0-0.2); Bilirubin,Indirect 0.6 mg/dL (0.0-1.0); Globulin 3.6 g/dL (2.4-3.5); Total Protein 6.9 g/dL (6.4-8.9)
[2020-07-09] MEDS: Lactulose Oral Soln 20 GM/30 ML UDC PO SCH (07:57)
[2020-07-09] MEDS: Gabapentin 300 MG CAPSULE PO SCH ×3 (07:57→20:20)
[2020-07-09] MEDS: Venlafaxine XR (24 HR) 75 MG CAP.ER.24H PO SCH (07:57)
[2020-07-09] MEDS: Spironolactone 25 MG TABLET PO SCH (07:57)
[2020-07-09] MEDS: atenoloL 25 MG TABLET PO SCH (07:58)
[2020-07-09] MEDS: Aspirin Enteric Coated 81 MG Tablet PO SCH (07:58)
[2020-07-09] MEDS: Furosemide 20 MG TABLET PO SCH (07:58)
[2020-07-09] MEDS: Insulin LISPRO 300 UNITS/3 ML VIAL SUBQ SCH ×4 (08:02→20:21)
[2020-07-09] MEDS ORDERED: Lactulose 200 GM, Sodium Chloride IRRigation 700 ML RC ONE ×2 (08:21→19:01)
[2020-07-09] MEDS: rOPINIRole 0.25 MG TABLET PO SCH (20:20)
[2020-07-10 00:58] LABS: Immature Granulocytes % 0.3 % (0-4)
[2020-07-10 00:59] LABS: Eosinophils % 2.8 %; Hematocrit 35.6 % (35.3-44.9); Hemoglobin 10.9 g/dL (11.5-15.4); Immature Platelets 3.9 % (1.1-6.1); Lymphocytes % 24.3 %; Mean Corpuscular HGB Conc 30.6 g/dL (31.6-35.5); Mean Corpuscular Volume 91.5 fL (83.0-100.0); Mean Platelet Volume 10.7 fL (9.4-12.4); Red Blood Count 3.89 M/mcL (3.82-4.97); Red Cell Distribution Width 18.3 % (11.5-14.5); White Blood Count 3.6 K/mcL (4.3-11.1)
[2020-07-10 01:00] LABS: Basophils % 0.6 %; Eosinophils # 0.1 K/mcL (0.0-0.6); Lymphocytes # 0.9 K/mcL (0.6-4.6); Monocytes # 0.9 K/mcL (0.0-1.3); Neutrophils # 1.7 K/mcL (1.6-8.9)
[2020-07-10 01:14] LABS: BUN/Creatinine Ratio 18 (6-26); Blood Urea Nitrogen 14 mg/dL (8-23); Calcium 8.8 mg/dL (8.6-10.3); Carbon Dioxide 23 mEq/L (23-29); Chloride 107 mEq/L (98-107); Glucose 107 mg/dL (70-105); Osmolality,Calculated 281 (280-300); Potassium 3.9 mEq/L (3.5-5.1); Sodium 135 mEq/L (136-145); eGFR For African Americans > 60 (> 60); eGFR For Non-African Americans > 60 (> 60)
[2020-07-10 01:15] LABS: Albumin 3.3 g/dL (3.5-5.7); Albumin/Globulin Ratio 0.9 (1.1-2.2); Bilirubin,Direct 0.3 mg/dL (0.0-0.2); Bilirubin,Indirect 0.6 mg/dL (0.0-1.0); Bilirubin,Total 0.9 mg/dL (0.3-1.0); Globulin 3.7 g/dL (2.4-3.5)
[2020-07-10 01:17] LABS: Platelet Count 85 K/mcL (140-400)
[2020-07-10 01:18] LABS: Anisocytosis 1+ (Not Present); Platelet Estimate Decreased (Normal)
[2020-07-10] MEDS: Gabapentin 300 MG CAPSULE PO SCH ×3 (07:37→19:42)
[2020-07-10] MEDS: Aspirin Enteric Coated 81 MG Tablet PO SCH (07:37)
[2020-07-10] MEDS: atenoloL 25 MG TABLET PO SCH (07:38)
[2020-07-10] MEDS: Furosemide 20 MG TABLET PO SCH (07:38)
[2020-07-10] MEDS: Spironolactone 25 MG TABLET PO SCH (07:39)
[2020-07-10] MEDS: Venlafaxine XR (24 HR) 75 MG CAP.ER.24H PO SCH (07:39)
[2020-07-10] MEDS: Lactulose Oral Soln 20 GM/30 ML UDC PO SCH ×3 (07:39→19:42)
[2020-07-10] MEDS: Insulin LISPRO 300 UNITS/3 ML VIAL SUBQ SCH ×4 (07:40→19:34)
[2020-07-10 08:52] LABS: Bacteria,Urine Few per hpf (None-Few); Bilirubin,Urine Negative (Negative); Blood,Urine Negative (Negative); Clarity,Urine Turbid (Clear); Color,Urine Yellow (Yellow); Glucose,Urine (UA) 150 mg/dL (Normal); Ketones,Urine Trace mg/dL (Negative); Leukocyte Esterase,Urine Moderate (Negative); Mucus,Urine Few per lpf (None-Few); Nitrite,Urine Negative (Negative); PH,Urine 5.5 pH Units (5.0-8.0); Protein,Urine 30 mg/dL (Neg-Trace); RBC,Urine 0-3 per hpf (0-3); Specific Gravity,Urine 1.027 (1.010-1.025); Squamous Epithelial Cell,Urine Few per hpf (None-Few); Urobilinogen,Urine Normal (Normal); WBC,Urine 15-30 per hpf (0-3)
[2020-07-10] MEDS: cefTRIAXone 1,000 MG in 0.9 % Sodium Chloride Mini Bag 100 ML IVPB SCH (16:54)
[2020-07-10] MEDS: rOPINIRole 0.25 MG TABLET PO SCH (19:42)
[2020-07-11 00:55] LABS: Basophils % 0.2 %; Mean Corpuscular Hemoglobin 27.9 pg (28.0-33.3)
[2020-07-11 00:56] LABS: Eosinophils # 0.2 K/mcL (0.0-0.6); Eosinophils % 3.7 %; Hematocrit 34.7 % (35.3-44.9); Hemoglobin 10.4 g/dL (11.5-15.4); Immature Granulocytes % 0.6 % (0-4); Lymphocytes # 1.4 K/mcL (0.6-4.6); Lymphocytes % 27.3 %; Mean Platelet Volume 11.4 fL (9.4-12.4); Monocytes # 1.4 K/mcL (0.0-1.3); Monocytes % 26.8 %; Neutrophils # 2.1 K/mcL (1.6-8.9); Red Blood Count 3.73 M/mcL (3.82-4.97); Red Cell Distribution Width 18.1 % (11.5-14.5); Segmented Neutrophils % 41.4 %; White Blood Count 5.1 K/mcL (4.3-11.1)
[2020-07-11 00:57] LABS: Platelet Count 84 K/mcL (140-400)
[2020-07-11 01:08] LABS: Alanine Aminotransferase 32 Units/L (7-52); Albumin 3.2 g/dL (3.5-5.7); Albumin/Globulin Ratio 0.9 (1.1-2.2); Alkaline Phosphatase 135 Units/L (34-104); Aspartate Amino Transferase 60 Units/L (13-39); BUN/Creatinine Ratio 20 (6-26); Bilirubin,Direct 0.3 mg/dL (0.0-0.2); Bilirubin,Indirect 0.4 mg/dL (0.0-1.0); Bilirubin,Total 0.7 mg/dL (0.3-1.0); Blood Urea Nitrogen 16 mg/dL (8-23); Calcium 8.9 mg/dL (8.6-10.3); Carbon Dioxide 24 mEq/L (23-29); Chloride 104 mEq/L (98-107); Globulin 3.7 g/dL (2.4-3.5); Glucose 216 mg/dL (70-105); Osmolality,Calculated 286 (280-300); Potassium 4.1 mEq/L (3.5-5.1); Sodium 134 mEq/L (136-145); Total Protein 6.9 g/dL (6.4-8.9); eGFR For African Americans > 60 (> 60); eGFR For Non-African Americans > 60 (> 60)
[2020-07-11 01:37] LABS: Platelet Estimate Decreased (Normal)
[2020-07-11] MEDS: Spironolactone 25 MG TABLET PO SCH (08:00)
[2020-07-11] MEDS: Insulin LISPRO 300 UNITS/3 ML VIAL SUBQ SCH ×4 (08:00→21:45)
[2020-07-11] MEDS: atenoloL 25 MG TABLET PO SCH (08:01)
[2020-07-11] MEDS: Venlafaxine XR (24 HR) 75 MG CAP.ER.24H PO SCH (08:03)
[2020-07-11] MEDS: Aspirin Enteric Coated 81 MG Tablet PO SCH (08:03)
[2020-07-11] MEDS: Furosemide 20 MG TABLET PO SCH (08:03)
[2020-07-11] MEDS: Gabapentin 300 MG CAPSULE PO SCH ×3 (08:03→21:44)
[2020-07-11] MEDS: Lactulose Oral Soln 20 GM/30 ML UDC PO SCH ×3 (08:04→21:44)
[2020-07-11] MEDS: *HR* OxyCODONE Immed Rel 5 MG TABLET PO PRN (08:06)
[2020-07-11 15:15] LABS: Bacteria,Urine Few per hpf (None-Few); Bilirubin,Urine Negative (Negative); Blood,Urine Negative (Negative); Clarity,Urine Clear (Clear); Color,Urine Light-Yellow (Yellow); Glucose,Urine (UA) Normal (Normal); Ketones,Urine Negative (Negative); Leukocyte Esterase,Urine Trace (Negative); Mucus,Urine Few per lpf (None-Few); Nitrite,Urine Negative (Negative); Protein,Urine Negative (Neg-Trace); RBC,Urine 0-3 per hpf (0-3); Specific Gravity,Urine 1.016 (1.010-1.025); Squamous Epithelial Cell,Urine Few per hpf (None-Few); Urobilinogen,Urine Normal (Normal)
[2020-07-11] MEDS: cefTRIAXone 1,000 MG in 0.9 % Sodium Chloride Mini Bag 100 ML IVPB SCH (16:58)
[2020-07-11] MEDS: rOPINIRole 0.25 MG TABLET PO SCH (21:44)
[2020-07-12] MEDS: *HR* OxyCODONE Immed Rel 5 MG TABLET PO PRN ×2 (03:27→16:44)
[2020-07-12] MEDS: atenoloL 25 MG TABLET PO SCH (09:19)
[2020-07-12] MEDS: Gabapentin 300 MG CAPSULE PO SCH ×3 (09:19→21:33)
[2020-07-12] MEDS: Venlafaxine XR (24 HR) 75 MG CAP.ER.24H PO SCH (09:19)
[2020-07-12] MEDS: Spironolactone 25 MG TABLET PO SCH (09:19)
[2020-07-12] MEDS: Furosemide 20 MG TABLET PO SCH (09:20)
[2020-07-12] MEDS: Aspirin Enteric Coated 81 MG Tablet PO SCH (09:20)
[2020-07-12] MEDS: Lactulose Oral Soln 20 GM/30 ML UDC PO SCH ×3 (09:22→21:33)
[2020-07-12] MEDS: Insulin LISPRO 300 UNITS/3 ML VIAL SUBQ SCH ×4 (09:23→21:20)
[2020-07-12] MEDS: cefTRIAXone 1,000 MG in 0.9 % Sodium Chloride Mini Bag 100 ML IVPB SCH (16:39)
[2020-07-12] MEDS: rOPINIRole 0.25 MG TABLET PO SCH (21:33)
[2020-07-13] MEDS: *HR* OxyCODONE Immed Rel 5 MG TABLET PO PRN ×2 (02:04→13:40)
[2020-07-13] MEDS: atenoloL 25 MG TABLET PO SCH (09:50)
[2020-07-13] MEDS: Aspirin Enteric Coated 81 MG Tablet PO SCH (09:50)
[2020-07-13] MEDS: Furosemide 20 MG TABLET PO SCH (09:50)
[2020-07-13] MEDS: Spironolactone 25 MG TABLET PO SCH (09:51)
[2020-07-13] MEDS: Venlafaxine XR (24 HR) 75 MG CAP.ER.24H PO SCH (09:51)
[2020-07-13] MEDS: Gabapentin 300 MG CAPSULE PO SCH (09:51)
[2020-07-13] MEDS: Lactulose Oral Soln 20 GM/30 ML UDC PO SCH (09:51)
[2020-07-13] MEDS: Insulin LISPRO 300 UNITS/3 ML VIAL SUBQ SCH ×2 (09:51→12:55)
[2020-07-13 11:23] LABS: Influenza A PCR Negative (Negative); Influenza B PCR Negative (Negative); Resp. Syncytial Virus PCR Negative (Negative); SARS-CoV-2 by PCR (In House) Negative (Negative)
[2020-07-13 16:01] VITALS: BP 126/67
== END 2020-07-13 16:11 | DRG 441 ==
LOC: 3NENU 08:04 → EMEROOARM 08:04 → SUATTDRO 11:35 → 3NENU 12:13
PROVIDERS: ADMIT General Practice; ATTEND Internal Medicine